=== PATIENT | female | born 1995 | race Caucasian/White ===

== ENCOUNTER 2020-06-18 19:16 | Inpatient (IN) | payer OTHER ==
[~2020-06-18] VITALS: Ht 162.6 cm; Wt 84.8 kg
[2020-06-18] MEDS ORDERED: VALTREX1000 MG PO (20:15)
[2020-06-18] MEDS ORDERED: PRENATAL CAPLE1 EAC1 PO (20:15)
[2020-06-19] MEDS ORDERED: TRIAMCINOLONE A15 G1 (11:06)
== END 2020-06-22 14:40 | disposition home or self-care (01) | DRG 788 ==
LOC: LDR 19:16 → OB/GYN 19:16 → O/R 06-19 14:57 → OB/GYN 06-19 16:10
PROVIDERS: ADMIT Obstetrics & Gynecology; ATTEND Obstetrics & Gynecology
PROC: 10D00Z1 Extraction of Products of Conception, Low, Open Approach (ICD-10-PCS; principal; 2020-06-18)
PROC: 3E0P7VZ Introduction of Hormone into Female Reproductive, Via Natural or Artificial Opening (ICD-10-PCS; 2020-06-18)
PROC: 4A1HXFZ Monitoring of Products of Conception, Cardiac Rhythm, External Approach (ICD-10-PCS; 2020-06-18)
DX: O61.0 Failed medical induction of labor (principal); O65.9 Obstructed labor due to maternal pelvic abnormality, unspecified; Z37.0 Single live birth; Z3A.39 39 weeks gestation of pregnancy; Z20.822 Contact with and (suspected) exposure to COVID-19